=== PATIENT | male | born 1990 | race Caucasian/White ===

== ENCOUNTER 2016-10-23 22:46 | Emergency (ER) | payer BC, MEDICAID ==
--- NOTE | 2016-10-23 23:53 | EDM.PDOC ---
ED HPI GENERAL MEDICAL PROBLEM - General Chief Complaint: Abdominal Pain Stated Complaint: R SIDE PAIN/CHILLS Time Seen by Provider: 10/23/16 23:30 Source of Information: Reports: Patient - History of Present Illness INITIAL COMMENTS - FREE TEXT/NARRATIVE: right mid abdominal pain for 2 days with some N/V, feels some better now but is concerned that it may be appendicitis. Onset: Gradual Onset Date: 10/20/16 Duration: Day(s): Location: Reports: Abdomen Quality: Reports: Dull Associated Symptoms: Reports: Malaise - Related Data Allergies Allergy/AdvReac Type Severity Reaction Status Date / Time No Known Allergies Allergy Verified 10/23/16 23:37 Home Meds: Home Meds . [No Known Home Meds] 10/23/16 [History] Past Medical History - Past Health History Medical/Surgical History: Denies Medical/Surgical History - Infectious Disease History Infectious Disease History: Reports: Hepatitis C - Past Surgical History Head Surgeries/Procedures: Reports: None Respiratory Surgical History: Reports: None Neurological Surgical History: Reports: None Dermatological Surgical History: Reports: None Social & Family History - Family History Family Medical History: Unobtainable HEENT: Reports: None - Tobacco Use Smoking Status *Q: Current Every Day Smoker Years of Tobacco use: 5 Packs/Tins Daily: 1 Second Hand Smoke Exposure: Yes - Caffeine Use Caffeine Use: Reports: Coffee, Soda - Recreational Drug Use Recreational Drug Use: Yes Drug Use in Last 12 Months: Yes Recreational Drug Type: Reports: Marijuana/Hashish Recreational Drug Use Frequency: Rarely ED ROS GENERAL - Review of Systems Review Of Systems: See Below Constitutional: Reports: No Symptoms HEENT: Reports: No Symptoms Respiratory: Reports: No Symptoms Cardiovascular: Reports: No Symptoms Endocrine: Reports: No Symptoms GI/Abdominal: Reports: Abdominal Pain, Constipation Musculoskeletal: Reports: No Symptoms Skin: Reports: No Symptoms Neurological: Reports: No Symptoms Psychiatric: Reports: No Symptoms Hematologic/Lymphatic: Reports: No Symptoms ED EXAM, GI/ABD - Physical Exam Exam: See Below Exam Limited By: No Limitations General Appearance: Alert, WD/WN Ears: Normal External Exam Nose: Normal Inspection Throat/Mouth: Normal Inspection Head: Atraumatic Neck: Normal Inspection Respiratory/Chest: No Respiratory Distress Cardiovascular: Normal Peripheral Pulses GI/Abdominal: Normal Bowel Sounds, Soft, Tenderness (No rebound tenderness noted. pateint states his pain has improved over the last day or so) Extremities: Normal Inspection Neurological: Alert, Oriented Skin Exam: Warm Course - Vital Signs Last Recorded V/S: Last Vital Signs Temp 97.9 F 10/23/16 22:50 Pulse 89 10/23/16 22:50 Resp 16 10/23/16 22:50 BP 114/56 L 10/23/16 22:50 Pulse Ox 98 10/23/16 22:50 Departure - Departure Time of Disposition: 23:51 (I offered to do lab work to determine the source of his pain. After significant discussion, i instructed the patient that i was relativley sure he did not have appendicitis, but was concerned that he may be having iver pain due tohis historyof hepatitis. patient was concerned about the cost of a workup and asked if it was necessary to due any test. I told him that it was up to to him, and he declined) Disposition: Home, Self-Care 01 Condition: Good Clinical Impression: Abdominal pain, Constipation - Discharge Information Instructions: Constipation, Adult, [id number], Abdominal Pain, Adult, Easy-to -Read Forms: ED Department Discharge Additional Instructions: Drink plenty of fluids. If you start running fever, have worsening pain, or pain persist for several more days, you may need to follow up for an abdomenal workup.
== END 2016-10-24 | disposition home or self-care (01) ==
LOC: CC.ED 22:46
CPT/HCPCS: 99283